=== PATIENT | female | born 1995 | race Asian ===

== ENCOUNTER → 2024-02-03 17:10 | Outpatient (CLI) | payer OTHER, SELFPAY ==
[2024-02-03 19:08] LABS: HCG Quantitative /Beta subunit 73253 mIU/mL
== END ==
PROVIDERS: PCP Family Medicine; Referring Provider Family Medicine; Visit Provider Family Medicine
DX: N92.6 Irregular menstruation, unspecified (principal); E28.2 Polycystic ovarian syndrome; L30.9 Dermatitis, unspecified
CPT/HCPCS: 36415; 84702

== ENCOUNTER → 2024-02-10 19:14 | Outpatient (ROUT) | payer OTHER, SELFPAY ==
[2024-02-10 21:07] LABS: Urine N gonorrhoeae NOT DETECTED
[2024-02-10 21:21] LABS: Urine Chlamydia NOT DETECTED
== END ==
PROVIDERS: PCP Family Medicine; Visit Provider Student in an Organized Health Care Education/Training Program
DX: Z34.01 Encounter for supervision of normal first pregnancy, first trimester (principal)
CPT/HCPCS: 87491; 87591

== ENCOUNTER → 2024-03-06 11:47 | Outpatient (CLI) | payer OTHER, SELFPAY ==
[2024-03-06 12:57] LABS: Add Manual Diff / Slide Review NO; Basophils Absolute Auto 0 /uL (0-100); Basophils Percent Auto 0.2 % (0-2); Eosinophils Absolute Auto 100 /uL (0-450); Eosinophils Percent Auto 0.7 % (2-4); Hematocrit 39.4 % (36-46); Hemoglobin 13.3 g/dL (12.0-16.0); Lymphocytes Absolute Auto 1600 /uL (1100-4500); Lymphocytes Percent Auto 13.1 % (25-40); Mean Corpuscular HGB Conc 33.6 % (30-36); Mean Corpuscular Hemoglobin 28.5 PG (26-34); Mean Corpuscular Volume 84.7 fL (80-100); Monocytes Absolute Auto 600 /uL (0-900); Monocytes Percent Auto 5.2 % (3-14); Neutrophils Absolute Auto 9500 /uL (1500-7000); Neutrophils Percent Auto 80.8 % (50-75); Platelet Count 335 X10^3/uL (150-400); Red Blood Cell Count 4.65 X10^6/uL (4.0-5.2); Red Cell Distribution Width 12.6 % (11.6-14.8); White Blood Cell Count 11.8 X10^3/uL (4.5-11.0)
[2024-03-06 13:20] LABS: Hemoglobin A1C% w Est Avg Glu 4.8 % (4.0-6.0)
[2024-03-06 14:50] LABS: Hepatitis B Surface Antigen NEGATIVE s/c (NEGATIVE); Rubella Antibody IgG 8.2 IU/mL (>15)
[2024-03-06 15:01] LABS: HIV 1 & 2 Ab/Ag 4th Gen Combo NEGATIVE (NEGATIVE); Hep C Virus Ab w/Reflex Quant NEGATIVE s/c (NEGATIVE)
[2024-03-07 11:36] LABS: Varicella IgG Antibody Non Reactive (Non Reactive)
[2024-03-09 02:36] LABS: RPR Screen Non Reactive (Non Reactive)
== END ==
PROVIDERS: PCP Family Medicine; Referring Provider Student in an Organized Health Care Education/Training Program; Visit Provider Student in an Organized Health Care Education/Training Program
DX: Z34.00 Encounter for supervision of normal first pregnancy, unspecified trimester (principal); E28.2 Polycystic ovarian syndrome
CPT/HCPCS: 36415; 80055; 83036; 86787; 86803; 86850; 86900; 86901; 87086; 87389

== ENCOUNTER → 2024-05-12 09:46 | Outpatient (CLI) | payer OTHER, SELFPAY ==
--- NOTE | 2024-05-12 09:47 | DI.US.S_ITS ---
PROCEDURE: US OB >= 14 WEEKS FETUS INDICATIONS: 20 week anatomy scan OUTSIDE/PRIOR DATING DATA: Last menstrual period (LMP): 12/21/2023. LMP-based estimated date of delivery (KRIS): 09/26/2024. First dating scan (date and location): 03/09/2024 Estimated date of delivery (KRIS) from first dating scan: 09/25/2024 (provided working KRIS). TECHNIQUE: Real-time scanning was performed of the fetus, with image documentation and biometric measurements. COMPARISON: [facility], US, US OB <= 14 WEEKS FETUS, 03/09/2024, 9:56. FINDINGS: General: A single living intrauterine gestation is present. Presentation: Vertex. Placenta: Placental position is posterior , without previa Amniotic fluid index: 14.6 cm, normal range is 5-24 cm. Single deepest vertical pocket is 4.3 cm. heart rate: 145 beats per minute. Maternal cervical canal: 3 cm long. Normal lower limit is 2.5 cm. biometrics: Biparietal diameter: 5.2 cm, 21 weeks and 6 days Head circumference: 18.4 cm, 20 weeks and 5 days Abdominal circumference: 15.7 cm, 20 weeks and 6 days Femur length: 3.3 cm, 20 weeks and 2 days Clinically estimated gestational age: 20 weeks and 4 days Composite gestational age from present scan: 21 weeks Estimated weight and percentile: 369 g, 50 percentile Anatomic survey: Neuro: Ventricles are non-dilated at less than 10 mm. Cisterna magna is normal at 3-11 mm. Cerebellum is normal in size and morphology. Nuchal skin fold: Normal at less than 6 mm between 14-21 weeks gestational age. Face: Nose lips not fully seen. Facial profile unremarkable Spine: Sacral skin line was not fully visualized, but no gross abnormality is suspected. Heart: 4-chambered heart is present, with normal ventricular outflow tracts. Diaphragm: Diaphragm is intact. Stomach: Left-sided stomach is present. Kidneys: No hydronephrosis. Normal is less than 5 mm in 2nd trimester, less than 7 mm in 3rd trimester. Cord: 3-vessel cord has orthotopic insertion. Bladder: Normal in size. Extremities: All 4 extremities identified. IMPRESSION: Living intrauterine gestation at an ultrasound age of 20 weeks and 4 days. EFW is at the 50th percentile. Normal GABE. Vertex positioning. No significant abnormalities on routine anatomic survey. However, nose/lips and sacral skin line were not fully seen. Follow-up is suggested. Dictated by: Wilbur Harrison M.D. on 05/12/2024 at 12:58 Approved by: Wilbur Harrison M.D. on 05/12/2024 at 13:04
== END ==
PROVIDERS: PCP Family Medicine; Referring Provider Student in an Organized Health Care Education/Training Program; Visit Provider Student in an Organized Health Care Education/Training Program
DX: Z34.02 Encounter for supervision of normal first pregnancy, second trimester (principal); Z3A.20 20 weeks gestation of pregnancy
CPT/HCPCS: 76811

== ENCOUNTER → 2024-07-03 07:43 | Outpatient (CLI) | payer OTHER, SELFPAY ==
[2024-07-03 09:39] LABS: Hematocrit 36.3 % (36-46); Hemoglobin 12.2 g/dL (12.0-16.0)
[2024-07-03 10:04] LABS: GTT (PREG) 1 Hour PP 50gm Dose 127 mg/dL (76-139)
== END ==
PROVIDERS: Obstetrics & Gynecology; PCP Family Medicine; Referring Provider Student in an Organized Health Care Education/Training Program; Visit Provider Student in an Organized Health Care Education/Training Program
DX: Z34.02 Encounter for supervision of normal first pregnancy, second trimester (principal); Z3A.26 26 weeks gestation of pregnancy
CPT/HCPCS: 36415; 82950; 85014; 85018

== ENCOUNTER → 2024-08-29 11:52 | Outpatient (CLI) | payer OTHER, SELFPAY ==
[2024-08-30 09:10] LABS: Strep Grp B PCR NEG for Grp B Strep
== END ==
PROVIDERS: PCP Family Medicine; Visit Provider Obstetrics & Gynecology
DX: Z36.85 Encounter for antenatal screening for Streptococcus B (principal)
CPT/HCPCS: 87653

== ENCOUNTER 2024-09-03 01:22 | Outpatient (CLI) | payer OTHER, SELFPAY ==
--- NOTE | 2024-09-03 02:12 | DI.US.S_ITS ---
PROCEDURE: US OB LIMITED INDICATIONS: vaginal bleeding OUTSIDE/PRIOR DATING DATA: Last menstrual period (LMP): 12/21/2023 LMP-based estimated date of delivery (KRIS): 09/26/2024 First dating scan (date and location): Unknown exam date Estimated date of delivery (KRIS) from first dating scan: 09/25/2024 The calculations are made using the ultrasound KRIS of 09/25/2024 TECHNIQUE: Real-time scanning was performed of the fetus, with image documentation. Endovaginal scanning: Not performed COMPARISON: [facility], , US OB >= 14 WEEKS FETUS, 05/12/2024, 10:11. FINDINGS: General: A single living intrauterine gestation is present. Presentation: Vertex Placenta: Placental position is posterior, without previa. No obvious abruption none given incomplete visualization related to overlying fetus. Amniotic fluid index: 21.2 cm, normal range is 5-24 cm. Single deepest vertical pocket is 6.8 cm. heart rate: 143 beats per minute. Maternal cervical canal: Not evaluated. Clinically estimated gestational age: 36 weeks 6 days IMPRESSION: 1. Single live intrauterine at 36 weeks 6 days gestational age. 2. Amniotic fluid index is 21.2 cm. 3. No placental previa. Posterior placenta is normal where visualized, but is obscured by the overlying fetus. There is no significant discrepancy when compared to the overnight preliminary report. Approved by: Michael Varela M.D. on 09/03/2024 at 8:18
--- NOTE | 2024-09-03 08:31 | P.TNLD_ITS ---
Visit Information Visit Information Date of evaluation: 09/03/24 Primary OB Provider: Crystal Roche On-call OB Provider: Vira Benjamin Comments/Additional reasons for admission: 29yo at 36w6d here for vaginal bleeding. Pt reports having intercourse last night, and having vaginal bleeding afterwards. Was enough bleeding that she was soaking through panty liners. No cramping/contractions. No LOF. She is feeling her baby move regularly. [facility] [place] Medical History (Updated 09/03/24 @ 08:35 by Vira Benjamin MD) Uterus didelphus PCOS (polycystic ovarian syndrome) (~2021) Surgical History (Updated 02/09/24 @ 09:08 by Kathy Kruger, RN) H/O wisdom tooth extraction (01/06/24) Family History (Updated 02/09/24 @ 09:14 by Kathy Kruger, RN) Mother Age: 61 Hypertension Grandmother Hypertension Heart attack Grandfather Colon cancer Brother Gout Aunt Hypertension Aunt Hypertension Diabetes mellitus Social History marital status: number of children: 0 household members: spouse lives independently: Yes caregiver/support person: [facility] pets [facility]: No education level: college (bachelor's degree) 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) current occupational exposures/hazards: No special katy needs: No travel history: over 6 months ago seatbelt use: always water heater temp set < 120 deg: Yes working smoke detector in home: Yes fire extinguisher in home: Yes carbon monox detector in home: Yes firearms in home: No do you feel safe at home: Yes second hand exposure: No alcohol intake: former (very occasionally when not ) substance use type: does not use during the past year weight has: remained stable well-balanced diet: rarely or never daily servings fruits/ve-1 caffeine: No Type(s) of exercise: walking frequency: 3-4 times per week Evaluation Evaluation Baseline heart rate: 120 Variability: Moderate (11-25) monitor accelerations: Present Monitor Decelerations: Absent Category of Tracing: Reactive Diagnosis, Plan/Disposition Final Diagnosis (1) Vaginal bleeding: Status: Acute (2) 36 weeks gestation of : Status: Acute Plan/Disposition Plan: 29yo at 36w6d here for vaginal bleeding. Bleeding slowed significantly at presentation to L&D, now with only minimal spotting. NST reactive, no concerning contractions/tachysystole. U/S reassuring. Low concern for abruption. Recommend nothing inserted vaginally until f/u with primary OB. Stable for d/c home. OB Disposition: home
== END 2024-09-03 03:08 | disposition home or self-care (01) ==
LOC: OB 16:39
PROVIDERS: PCP Family Medicine; Referring Provider Family Medicine; Visit Provider Family Medicine
DX: O46.93 Antepartum hemorrhage, unspecified, third trimester (principal); Z3A.36 36 weeks gestation of pregnancy
CPT/HCPCS: 76815; G0378; G0379

== ENCOUNTER 2024-09-05 01:25 | Inpatient (IN) | payer OTHER, SELFPAY ==
[2024-09-05] MEDS: OXYTOCIN PREMIX 30 UNIT/500 ML PLAST..BAG 200 UNIT IV (01:53)
[2024-09-05 01:55] LABS: Add Manual Diff / Slide Review NO; Basophils Absolute Auto 100 /uL (0-100); Basophils Percent Auto 0.7 % (0-2); Eosinophils Absolute Auto 100 /uL (0-450); Eosinophils Percent Auto 0.7 % (2-4); Hematocrit 39.8 % (36-46); Hemoglobin 13.4 g/dL (12.0-16.0); Lymphocytes Absolute Auto 3100 /uL (1100-4500); Lymphocytes Percent Auto 21.9 % (25-40); Mean Corpuscular HGB Conc 33.8 % (30-36); Mean Corpuscular Hemoglobin 29.2 PG (26-34); Mean Corpuscular Volume 86.6 fL (80-100); Monocytes Absolute Auto 1200 /uL (0-900); Monocytes Percent Auto 8.3 % (3-14); Neutrophils Absolute Auto 9700 /uL (1500-7000); Neutrophils Percent Auto 68.4 % (50-75); Platelet Count 367 X10^3/uL (150-400); Red Cell Distribution Width 13.8 % (11.6-14.8); White Blood Cell Count 14.1 X10^3/uL (4.5-11.0)
--- NOTE | 2024-09-05 02:23 | P.HPOB_ITS ---
OB HPI Date/Time Date of admission: 09/05/24 Date Patient Seen: 09/05/24 Time Patient Seen: 01:20 History of Present Condition Chief complaint: labor KRIS Calculator 2 Estimated Delivery Date Method Current WG Current Estimate 09/25/24 Ultrasound #1 37w 1d Other Estimates 08/25/24 LMP (Certain) 41w 4d : 1 Para: 0 Narrative: 29yo at 37+1wks presented in active labor with ruptured membranes. care: good care Dating criteria OB: LMP confirmed by 1st trimester US Ultrasounds: normal mid trimester US Narrative: G1 [x ] cfDNA- low risk XY; [ x] CF/SMA- neg Rubella NI--> vaccinate PCOS, A1C added to NOB labs MRI with possible cervical septum ?, no uterine septum or vaginal septum, arcuate uterus noted Eric Assigned to [facility] Preadmission Labs Last OB Lab Results: 2 Blood Type AB Positive 03/06/24, 11:56 Antibody Screen Negative 03/06/24, 11:56 Hct, (36-46) 39.8 % Today, 01:31 Hgb, (12.0-16.0) 13.4 g/dL Today, 01:31 Hep Bs Antigen, (NEGATIVE) Negative s/c 03/06/24, 11: 56 Hepatitis C Antibody, (NEGATIVE) Negative s/c 4, 11:56 Rubella Antibody, (>15) 8.2 IU/mL L 03/06/24, 11:56 VZV IgG Antibody, (Non Reactive) Non reactive 4, 11:56 Glucose 1 Hr 50 gm, (76-139) 127 mg/dL 07/03/24, 0 8:58 Hemoglobin A1c, (4.0-6.0) 4.8 % 03/06/24, 11:5 6 Group B Strep (PCR) Neg for grp b strep 08/29/24, 11:52 Glucose Tolerance Testin hr (negative) -: Chlamydia screen: negative, Gonorrhea screen: negative and Urine: negative -: PAP smear: Normal Genetic Screens: Cell-free DNA: Normal External Labs -: Urine: negative Evaluation Evaluation Baseline heart rate: 120 Variability: Moderate (11-25) monitor accelerations: Present Monitor Decelerations: Early Contraction Frequency (minutes): 3 Uterine Contraction Intensity: Strong/Firm Status: Category ll Dilation (cm): 10 Effacement (%): 100 station: +2 Comments: grossly ruptured [facility] Medical History (Updated 09/03/24 @ 08:35 by Vira Benjamin MD) Uterus didelphus PCOS (polycystic ovarian syndrome) (~2021) Surgical History (Updated 02/09/24 @ 09:08 by Kathy Kruger, RN) H/O wisdom tooth extraction (01/06/24) Family History (Updated 02/09/24 @ 09:14 by Kathy Krugre RN) Mother Age: 61 Hypertension Grandmother Hypertension Heart attack Grandfather Colon cancer Brother Gout Aunt Hypertension Aunt Hypertension Diabetes mellitus Social History marital status: number of children: 0 household members: spouse lives independently: Yes caregiver/support person: No housing: condominium pets and animals: No education level: college (bachelor's degree) 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) current occupational exposures/hazards: No special katy needs: No travel history: over 6 months ago seatbelt use: always water heater temp set < 120 deg: Yes working smoke detector in home: Yes fire extinguisher in home: Yes carbon monox detector in home: Yes firearms in home: No do you feel safe at home: Yes second hand exposure: No alcohol intake: former (very occasionally when not ) substance use type: does not use during the past year weight has: remained stable well-balanced diet: rarely or never daily servings fruits/ve-1 caffeine: No Type(s) of exercise: walking frequency: 3-4 times per week Meds Home Medications and Allergies Home Medications ?Medication ?Instructions ?Recorded ?Confirmed ?Type vitamin-ferrous sulfate tab PO 02/09/2408/17 History 27 mg iron-folic acid 0.8 mg tablet Allergies Allergy/AdvReac Type Severity Reaction Status Date / Time Sulfa (Sulfonamide Allergy Mild CHILDHOOD Unverified 08/17/24 10:48 Antibiotics) (SULFA REACTION (SULFONAMIDE ANTIBIOTICS)) Review of Systems Review of Systems ROS: Yes All systems reviewed with the patient and are negative except as otherwise documented OB Exam Vital signs Blood Pressure: 132/64 Pulse Rate: 113 Temperature: 36.3 F HENMT Head: normal to inspection and normocephalic Eyes General: appearance normal, both eyes and all related structures Resp Effort & Inspection: normal respiratory effort and able to speak in complete sentences Extremities Lower extremity: Yes normal to inspection GI Inspection: normal to inspection Other: gravid, nontender, nondistended Presentation: vertex Amniotic Fluid: clear Objective Labs 09/05/24 01:31 Labs: Laboratory Results - last 24 hr 09/05/24 01:31 WBC 14.1 H RBC 4.60 Hgb 13.4 Hct 39.8 MCV 86.6 MCH 29.2 MCHC 33.8 RDW 13.8 Plt Count 367 Neut % (Auto) 68.4 Lymph % (Auto) 21.9 L [place] % (Auto) 8.3 Eos % (Auto) 0.7 L Baso % (Auto) 0.7 Neut # (Auto) 9700 H Lymph # (Auto) 3100 [place] # (Auto) 1200 H Eos # (Auto) 100 Baso # (Auto) 100 Assessment and Plan Assessment and Plan Assessment and Plan narrative: 29yo at 37+1wks admitted in active labor. H&P completed after delivery as she progressed quickly. -CBC, T&S on admission -continuous EFM -GBS neg, ppx not indicated -PPH risk low -VTE risk low -anticipate L&D Counseling: Common procedures and interventions related to the management of were explained to the patient, including assistance at vaginal delivery with episiotomy, vacuum, or forceps, use of medications to stop premature labor or induce labor, and assessment including auscultation (listening to the heart), use of electronic monitoring (external and / or internal), and use of scalp electrode and/or intrauterine pressure catheter.? It was also explained that approximately 20-30% of mothers have a need for delivery during their labor course. It was explained to the patient that , labor and delivery are ordinarily normal physiological events and can be expected to provide a healthy outcome for mother and baby in the majority of cases. However, there are complications that may arise during , labor, and delivery, such as: hemorrhage requiring administration of blood and/or blood products, surgical intervention, possibly even hysterectomy for life-saving purposes; possibility of infection requiring antibiotics, prolonged hospital stay, and rarely surgical intervention; possibility of blood clots;? possibility of retained products of conception requiring surgical intervention;? possibility of serious tears or injury to the vagina, cervix, perineum, or rectum;? possibility of injury to abdominal structures if delivery is required;? and rarely maternal or may occur. Time-Based Coding :: [10min] spent with patient and on the chart (including review of chart, obtaining history, exam, reviewing outside data, placing orders, documenting exam and treatment plan, and counseling patient) on [09/05/24].
[2024-09-05 02:29] VITALS: BP 132/64; PULSE 113; TEMP 2.4; TEMP 36.3
--- NOTE | 2024-09-05 02:32 | P.PCNOB_ITS ---
Labor & Delivery Delivery date: 09/05/24 Delivery Time: 01:46 Intrapartal Events: Precipitous Labor < 3 hours Delivery monitor: external FHT and external uterine Route of delivery: L&D Laceration Description: Perineal - 2nd Degree Delivery repair: vicryl Quantitative Blood Loss: 277 Anesthesia Type: Local Complications: none Narrative: The patient progressed to C/C/+2 with ruptured membranes. After approximately 20min of maternal pushing efforts, the delivered in OA position and restituted ROT. The anterior shoulder delivered with gentle downward pressure. The posterior shoulder and rest of body delivered with ease. The cord was doubly clamped and cut after a 60sec delay with the placed on maternal abdomen. The placenta delivered spontaneously and was intact with a 3-vessel cord. The fundus was noted to be firm with bimanual massage and pitocin. Inspection of the cervix, vagina, and perineum was notable for a 2nd degree perineal laceration. Repair was performed using 3-0 Vicryl in a running, unlocked fashion after injection of 1% lidocaine. Skin was reapproximated in a running, subcuticular fashion. At the end of the repair, all tissues noted to be hemostatic. All sponges were removed from the vagina. The patient tolerated delivery well and remained in the labor room with the infant at the bedside. [place] Baby 1: gender: Male Presentation: vertex Placenta delivery description: Spontaneous Cord Vessel Description: 3 Vessels score (1 min): 8 score (5 min): 9 weight: 6 lb 9.61 oz Plan for aftercare: Routine care
[2024-09-05 02:41] VITALS: BP 123/73
--- NOTE | 2024-09-05 13:27 | P.PNOB_ITS ---
Subjective - OB Subjective Patient comments: no complaints, pain well controlled and tolerating diet baby status: doing well feeding status: breast and bottle feeding (difficult latch) Narrative: pt resting comfortably, states she is feeling well, only mild discomfort with urination, ambulating/voiding without difficulty Date Patient Seen: 09/05/24 Time Patient Seen: 13:28 Exam Vital Signs (past 8 hours): maternal VSS/afebrile, reviewed in OBIX Const General: cooperative, healthy appearing, comfortable and well developed Nutritional Appearance: average body habitus Orientation: alert, awake and oriented x3 Limitations: mental status not altered Resp Effort & Inspection: normal respiratory effort and able to speak in complete sentences Cardio Pulses: normal peripheral pulses GI Palpation: soft Other: fundus firm << Umb, non-tender Other: deferred Skin General: no rashes or lesions noted Neuro General: patient alert, patient awake and patient oriented x3 Extrem General: normal to inspection Psych Mental Status: mental status grossly normal Judgment: judgment good Objective Labs 09/05/24 01:31 Labs: Laboratory Results - last 24 hr 09/05/24 01:31 WBC 14.1 H RBC 4.60 Hgb 13.4 Hct 39.8 MCV 86.6 MCH 29.2 MCHC 33.8 RDW 13.8 Plt Count 367 Neut % (Auto) 68.4 Lymph % (Auto) 21.9 L [place] % (Auto) 8.3 Eos % (Auto) 0.7 L Baso % (Auto) 0.7 Neut # (Auto) 9700 H Lymph # (Auto) 3100 [place] # (Auto) 1200 H Eos # (Auto) 100 Baso # (Auto) 100 Blood Type AB Positive Antibody Screen Negative Assessment & Plan Plan day: 0 plan OB: routine care Comments: routine care support PRN readdress contraception prior to discharge varicella non-immune, vaccinate anticipate dc to home PPD1 Time-Based Coding :: [TOTAL MINUTES] spent with patient and on the chart (including review of chart, obtaining history, exam, reviewing outside data, placing orders, documenting exam and treatment plan, and counseling patient) on [DATE].
[2024-09-06] MEDS: LANOLIN OINT 7 GM 1 APPLIC TOP (07:47)
[2024-09-06] MEDS: PRENATAL VIT,CALC/IRON/FOLIC 1 TABLET 1 TAB PO (07:48)
--- NOTE | 2024-09-06 08:43 | PM.OBDS.1 ---
Discharge Providers Provider Date of admission: 09/05/24 01:25 Discharge Date: 09/06/24 Primary care physician: Cecy Gomez DO Consults: 09/06/24 02:22 Consult to [employer] Routine Comment: Discharge provider: Crystal Roche DO Summary Hospital Course Date Patient Seen: 09/06/24 Time Patient Seen: 08:30 Diagnoses: Term gestation at 37+1wks, delivered via spontaneous vaginal delivery Rubella nonimmune status Hospital Course: 29yo [id number] admitted at 37+1wks in active labor. She progressed very quickly to a spontaneous vaginal delivery, productive of a viable male infant. Her course was unremarkable. On day #2, she was ambulating, tolerating regular diet, voiding spontaneously with minimal lochia. Her pain was well controlled with oral medications, thus she was discharged to home on day #2. Peripartum Data Delivery Method: Natural Vaginal Laceration Description: Perineal - 2nd Degree Procedures: External monitoring Spontaneous vaginal delivery Obstetrical laceration repair complications: none [place] 1: Gender: Male Disposition of : home Discharge Diagnosis (1) Vaginal delivery: Status: Acute (2) Single live : Status: Acute (3) 37 weeks gestation of : Status: Acute (4) Rubella non-immune status, antepartum: Status: Acute Status at Discharge Cognitive/behavioral status at discharge: oriented Functional status at discharge: independent ambulation Overall status at discharge: patient is progressing back to baseline Time Spent with Patient Time attestation: Total time spent providing and/or coordinating discharge services: Time spent: Less than 30 minutes Objective Labs 09/05/24 01:31 Exam Vital Signs (past 8 hours): vitals reviewed in OBIX, within normal parameters Const General: cooperative, healthy appearing, comfortable and No acute distress Resp Effort & Inspection: normal respiratory effort GI Inspection: normal to inspection Other: fundus firm and nontender at U-2 Skin General: no rashes or lesions noted Neuro General: patient alert and patient awake Extrem General: normal to inspection, no pedal edema and no calf tenderness Psych Mood: congruent mood Affect: normal affect Discharge Plan Discharge Plan Patient Disposition: Home Provider Discharge Comment: Take ibuprofen 600mg every 6hrs and acetminophen 650mg every 6hrs as needed for pain. Avoid placing anything in the vagina for 6 weeks. Discharge orders & Medications Prescriptions: Continued vit-ferrous sulfat-FA 27 mg iron- 0.8 mg tablet PO Follow up/Referrals: Crystal Roche DO [Physician, [employer]] Referral Note: Please follow-up for your 2 week telehealth appointment on Thursday September 19, 2024 at 4:15 pm. Please arrive at 4:00 pm! Please follow-up for your 6 week appointment on TuesdayOctober 17 at 11:30 am. Please arrive at 11:15 am! Diet/Activity/Treatments Diet: Diet as Tolerated Activity: As tolerated. Skin/Wound/Dressing Care Report to your healthcare provider any signs of infection, such as:: chills, fever, increased pain and unusual drainage Visit Report/Discharge Packet Instructions: DI for Labor and Delivery, Vaginal Stand Alone Forms: Patient Portal/API, Stroke Signs & Symptoms Discharge Data Primary Care Provider: Cecy Gomez
== END 2024-09-06 12:10 | disposition home or self-care (01) | DRG 807 ==
PROVIDERS: Admitting Provider Student in an Organized Health Care Education/Training Program; PCP Family Medicine; Referring Provider Student in an Organized Health Care Education/Training Program; Visit Provider Student in an Organized Health Care Education/Training Program
DX: O99.284 Endocrine, nutritional and metabolic diseases complicating childbirth (principal); Z37.0 Single live birth; E28.2 Polycystic ovarian syndrome; O70.1 Second degree perineal laceration during delivery; O62.3 Precipitate labor; Z3A.37 37 weeks gestation of pregnancy; O46.93 Antepartum hemorrhage, unspecified, third trimester; Z3A.36 36 weeks gestation of pregnancy
CPT/HCPCS: 36415; 59025; 59050; 59400; 59409; 76815; 85025; 86850; 86900; 86901; G0379; J2590